=== PATIENT | male | born 1990 | race Two or more races ===

== ENCOUNTER 2018-09-16 15:40 | Emergency (ER) | payer MEDICAID, OTHER ==
[~2018-09-16] VITALS: Ht 175.3 cm; Wt 80.5 kg
--- NOTE | 2018-09-16 16:24 | NUR ---
PT TEARFUL ON ARRIVAL, WORRIED ABOUT HIS GRANDMOTHER, AUDITORY HALLUCINATIONS THAT SOMETHING BAD IS GOING TO HAPPEN TO HER.
--- NOTE | 2018-09-16 16:36 | NUR ---
PT GETTING LABS DRAWN, PT HAVING A HARD TIME FOCUSING ON TRYING TO REMEMBER WHAT MEDICATIONS HE TAKES. STATES I AM IN DEEP THOUGHT ABOUT SOMETHING AND IS FRUSTRATED THAT HE CANT REMEMBER WHAT HE TAKES.
--- NOTE | 2018-09-16 16:39 | NUR ---
PT STATES HE TAKES TRAZADONE, KLONIDINE AND GABAPENTIN. DOES NOT KNOW THE DOSES. WILL TRY TO FIND OUT MORE WHEN PT IS RELAXED.
[2018-09-16 16:57] LABS: BASOPHILS % (AUTO) 0.3 % (0-1); EOSINOPHILS # (AUTO) 0.1 X10'3 (0-0.9); EOSINOPHILS % (AUTO) 0.4 % (0-6); HEMATOCRIT 38.2 % (42.0-52.0); HEMOGLOBIN 12.9 g/dl (14.0-17.9); LYMPHOCYTES # (AUTO) 1.6 X10'3 (1.1-4.8); LYMPHOCYTES % (AUTO) 13.3 % (21-51); MEAN CORPUSCULAR HEMOGLOBIN 29.4 PG (27.0-31.0); MEAN CORPUSCULAR HGB CONC 33.7 g/dL (33.0-36.5); MEAN CORPUSCULAR VOLUME 87.2 FL (78-98); MONOCYTES # (AUTO) 1.2 X10'3 (0-0.9); MONOCYTES % (AUTO) 9.8 % (2-12); NEUTROPHILS # (AUTO) 9.1 X10'3 (1.8-7.7); NEUTROPHILS % (AUTO) 76.2 % (42-75); PLATELET COUNT 383 X10'3 (140-440); RED BLOOD COUNT 4.38 X10'6 (4.70-6.10)
--- NOTE | 2018-09-16 17:06 | NUR ---
PT BEING EVALUATED BY PROVIDER LEOPOLDO.
[2018-09-16 17:10] LABS: ALANINE AMINOTRANSFERASE 34 U/L (12-78); ALBUMIN 3.6 G/DL (3.4-5.0); ALBUMIN/GLOBULIN RATIO 1.1 (1.1-1.5); ALKALINE PHOSPHATASE 68 IU/L (46-116); ANION GAP 8 (8-16); ASPARTATE AMINO TRANSFERASE 33 U/L (10-37); BILIRUBIN,TOTAL 0.2 MG/DL (0.1-1.0); BLOOD UREA NITROGEN 27 MG/DL (7-18); BUN/CREATININE RATIO 29.7 (5.4-32.0); CHLORIDE 103 MMOL/L (99-107); CREATININE 0.91 MG/DL (0.60-1.10); ETHANOL < 0.010 GM/DL (0.0-0.010); GLUCOSE 97 MG/DL (70-104); POTASSIUM 3.8 MMOL/L (3.5-5.1); SODIUM 139 MMOL/L (135-145); TOTAL CARBON DIOXIDE 27.9 MMOL/L (24-32); TOTAL PROTEIN 6.8 G/DL (6.4-8.2); eGFR > 90 ML/MIN
[2018-09-16 17:13] LABS: URINE AMPHETAMINE SCREEN POSITIVE (Neg); URINE BARBITUATE SCREEN NEGATIVE (Neg); URINE BENZODIAZEPINES SCREEN NEGATIVE (Neg); URINE CANNABINOID SCREEN POSITIVE (Neg); URINE COCAINE SCREEN NEGATIVE (Neg); URINE METHADONE SCREEN NEGATIVE (Neg); URINE OPIATE SCREEN NEGATIVE (Neg); URINE PHENCYCLIDINE SCREEN NEGATIVE (Neg)
--- NOTE | 2018-09-16 17:21 | NUR ---
PT'S GRANDMOTHER CALLS AND UPDATES HIS MEDICATIONS AND HX. TRANSFER CALL INTO PT SO SHE CAN TALK TO HIM. PER HIS GRANDMOTHER, JF, HIS BEHAVIOR HAS GOTTEN WORSE OVER THE LAST 3 OR 4 DAYS. PT BARKS, YELLS, SCREAMS AND CUSSES. PT TOLD HER HE HAS TAKEN EVERYTHING INCLUDING MUSHROOMS AND LSD BESIDES THE METH. PT HASNT SLEPT HARDLY AT ALL OVER THE LAST 2 WEEKS BUT HAS BEEN EATING. PT SE[facility] DR [facility]. DUE TO HIS PRIOR YEARS PLAYING [employer]LE[employer] FOOTBALL HIS DOCTOR THINKS HE MAY HAVE CTE.
[2018-09-16] MEDS ORDERED: GABA-532 PO (17:29)
[2018-09-16] MEDS ORDERED: TRAZ-218 PO (17:29)
[2018-09-16] MEDS ORDERED: CLON0.1T PO (17:29)
[2018-09-16 18:05] LABS: CLARITY,URINE CLEAR (Clear); COLOR,URINE YELLOW (Yellow); GLUCOSE, URINE NEGATIVE (Neg); KETONES,URINE NEGATIVE (Neg); LEUKOCYTE ESTERASE ,URINE NEGATIVE (Neg); NITRITES, URINE NEGATIVE (Neg); OCCULT BLOOD,URINE NEGATIVE (Neg); PROTEIN,URINE NEGATIVE (Neg); UROBILINOGEN,URINE 0.2 E.U/dL (0.2-1.0)
--- NOTE | 2018-09-16 18:16 | NUR ---
[employer] SERVED.
[2018-09-16 18:18] LABS: UA COLLECTION TYPE NON-SPECIFIED
--- NOTE | 2018-09-16 18:45 | NUR ---
DR. GOVEA CALLED AND REPORT GIVEN FOR TELEPSYCH CONSULT
--- NOTE | 2018-09-16 18:50 | NUR ---
TELE PSYCH IN PROGRESS
[2018-09-16] MEDS: gabapentin 300mg capsule PO SCH (20:37)
[2018-09-16] MEDS: traZODone 50mg tablet PO SCH (20:37)
[2018-09-16] MEDS: cloNIDine 0.1 mg tablet PO SCH (20:37)
[2018-09-17] MEDS ORDERED: diphenhydrAMINE 25mg capsule PO ONE (06:55)
[2018-09-17] MEDS ORDERED: LORazepam 1 MG tablet PO ONE (06:55)
--- NOTE | 2018-09-17 07:00 | NUR ---
Pt has been sitting on bed and is very fidigity. Pt stated he is very anxious and with racing thoughts. Spoke with Dr. Rashid and reported findings. Received verbal orders for Zyprexa 10mg PO daily, Ativan 2mg PO x 1 now and Benadryl 50mg PO x 1 now
[2018-09-17] MEDS: gabapentin 300mg capsule PO SCH ×2 (07:28→21:22)
[2018-09-17] MEDS: OLANZapine 5mg rapidly disint. tablet PO SCH (07:28)
[2018-09-17] MEDS: cloNIDine 0.1 mg tablet PO SCH ×3 (07:28→21:00)
--- NOTE | 2018-09-17 12:19 | NUR ---
PT AWAKE AND EATING WHILE SITTING IN BED.
--- NOTE | 2018-09-17 19:00 | NUR ---
PATIENT LYING IN BED ON LEFT SIDE COVERS ON EYES CLOSED RR EVEN UN LABORED NO OBSERVABLE S/S OF ACUTE STRESS AT THIS TIME
--- NOTE | 2018-09-17 19:05 | NUR ---
[facility] AT BEDSIDE EVALUATING PATIENT
--- NOTE | 2018-09-17 19:27 | NUR ---
[facility] VERBALIZED THEY WILL BE CONTINUING THE 5150 HOLD
--- NOTE | 2018-09-17 21:00 | NUR ---
SPOKE WITH GRANDMOTHER UPDATED STATUS
[2018-09-17] MEDS: traZODone 50mg tablet PO SCH (21:22)
--- NOTE | 2018-09-17 23:03 | NUR ---
[facility] CALLED VERBALIZED PATIENT HAS A BED AT [facility] IN THE A.M. OF 09/18/18, CALLED GAVE REPORT TO ROLO MERRILL
--- NOTE | 2018-09-17 23:16 | NUR ---
SPOKE WITH ROLO RN FROM [facility] PATIENT HAS BEEN ACCEPTED, [facility] VERBALIZED 2 MALES ARE TO BE DC'D FROM FACILITY IN THE A.M. OF 09/18/18 , ROLO VERBALIZED WHEN 1/2 OF THESE PATIENTS GETS DC'D [facility] WILL BE PICKED UP FOR PLACEMENT AT [facility]
--- NOTE | 2018-09-17 23:30 | NUR ---
PATIENT UP TO BATHROOM AND BACK TO BED NO OBSERVABLE S/S OF ACUTE STRESS AT THIS TIME
--- NOTE | 2018-09-18 00:43 | NUR ---
patient in bed lying supine covers on eyes closed rr even un labored no observable s/s of acute stress at this time
--- NOTE | 2018-09-18 02:40 | NUR ---
patient in bed covers on still lying supine eyes closed rr even un labored no observable s/s of acute stress at this time
--- NOTE | 2018-09-18 04:50 | NUR ---
patient in bed covers on eyes closed rr even un labored no observable s/s of acute stress at this time
--- NOTE | 2018-09-18 06:38 | NUR ---
Patient sleeping on right side. No distress observed. Continue to monitor.
--- NOTE | 2018-09-18 07:09 | NUR ---
Patient up to nurses station to speak to RN twice wanting to leave. Patient states he can make it on his own now and [facility] RN advised patient that he is awaiting placement and needs the help. Continue to monitor.
[2018-09-18] MEDS: cloNIDine 0.1 mg tablet PO SCH ×2 (08:00→12:37)
[2018-09-18] MEDS: gabapentin 300mg capsule PO SCH (08:07)
[2018-09-18] MEDS: OLANZapine 5mg rapidly disint. tablet PO SCH (08:07)
[2018-09-18] MEDS ORDERED: NICOTINE POLACRILEX 4 MG LOZENGE BC PRN (08:25)
--- NOTE | 2018-09-18 09:50 | NUR ---
Patient sleeping on right side. No distress observed. Continue to monitor.
--- NOTE | 2018-09-18 11:50 | NUR ---
Grandmother called and gave information on patient. Patient's father placed a restraining order on patient about 2 weeks ago. This sent patient into a spiral with increased drug use. Patient living with grandmother finally asked for help and called workplace rehabilitation officer to bring him in. Patient has a long hx of watching his father inject himself with IV drugs (at a very young age). Mother who was a nurse looked the other way. Per grandmother, patient needs to go to rehab before she will allow him back at her house. Patient is aware.
[2018-09-18 12:36] VITALS: BP 102/56
== END 2018-09-18 13:00 | disposition home or self-care (01) ==
LOC: ER 15:40
DX: S90.821A Blister (nonthermal), right foot, initial encounter (principal); F15.10 Other stimulant abuse, uncomplicated; F17.200 Nicotine dependence, unspecified, uncomplicated; F11.90 Opioid use, unspecified, uncomplicated; Z59.0 Homelessness; Z88.8 Allergy status to other drugs, medicaments and biological substances; Y09 Assault by unspecified means; Y93.89 Activity, other specified; Y92.89 Other specified places as the place of occurrence of the external cause; Y99.8 Other external cause status
CPT/HCPCS: 36415; 80053; 80305; 80320; 81003; 84443; 85025; 99285; Q0163

== ENCOUNTER 2019-09-13 21:36 | Emergency (ER) | payer MEDICAID ==
[~2019-09-13] VITALS: Ht 175.3 cm; Wt 93.2 kg
[~2019-09-13 21:36] MED LIST: CLON0.1T PO; GABA-532 PO; TRAZ-251 PO
[2019-09-13 21:37] VITALS: BP 133/88
[2019-09-13 22:43] LABS: CLARITY,URINE CLEAR (Clear); COLOR,URINE YELLOW (Yellow); GLUCOSE, URINE NEGATIVE (Neg); KETONES,URINE TRACE mg/dl (Neg); LEUKOCYTE ESTERASE ,URINE NEGATIVE (Neg); NITRITES, URINE NEGATIVE (Neg); OCCULT BLOOD,URINE NEGATIVE (Neg); PROTEIN,URINE NEGATIVE (Neg)
[2019-09-13 22:44] LABS: UA COLLECTION TYPE VOIDED
[2019-09-13 22:48] LABS: BASOPHILS % (AUTO) 0.4 % (0-1); EOSINOPHILS # (AUTO) 0.1 X10'3 (0-0.9); EOSINOPHILS % (AUTO) 1.4 % (0-6); HEMATOCRIT 41.4 % (42.0-52.0); HEMOGLOBIN 14.1 g/dl (14.0-17.9); LYMPHOCYTES # (AUTO) 2.3 X10'3 (1.1-4.8); LYMPHOCYTES % (AUTO) 26.8 % (21-51); MEAN CORPUSCULAR HEMOGLOBIN 29.7 PG (27.0-31.0); MEAN CORPUSCULAR VOLUME 87.1 FL (78-98); MEAN PLATELET VOLUME 7.5 FL (7.4-10.4); MONOCYTES # (AUTO) 0.8 X10'3 (0-0.9); MONOCYTES % (AUTO) 9.1 % (2-12); NEUTROPHILS # (AUTO) 5.3 X10'3 (1.8-7.7); NEUTROPHILS % (AUTO) 62.3 % (42-75); PLATELET COUNT 286 X10'3 (140-440); RED BLOOD COUNT 4.75 X10'6 (4.70-6.10); RED CELL DISTRIBUTION WIDTH 12.9 % (11.5-14.5); WHITE BLOOD COUNT 8.5 X10'3 (4.5-11.0)
[2019-09-13 22:51] LABS: ALANINE AMINOTRANSFERASE 25 U/L (12-78); ALBUMIN 3.7 G/DL (3.4-5.0); ALBUMIN/GLOBULIN RATIO 1.1 (1.1-1.5); ALKALINE PHOSPHATASE 69 IU/L (46-116); ANION GAP 8 (8-16); ASPARTATE AMINO TRANSFERASE 60 U/L (10-37); BILIRUBIN,TOTAL 0.4 MG/DL (0.1-1.0); BLOOD UREA NITROGEN 8 MG/DL (7-18); CALCIUM 8.7 MG/DL (8.5-10.1); CHLORIDE 105 MMOL/L (99-107); CREATININE 1.15 MG/DL (0.60-1.10); GLUCOSE 110 MG/DL (70-104); POTASSIUM 3.5 MMOL/L (3.5-5.1); SODIUM 142 MMOL/L (135-145); TOTAL CARBON DIOXIDE 29.2 MMOL/L (24-32); TOTAL PROTEIN 7.2 G/DL (6.4-8.2); eGFR 76 ML/MIN
[2019-09-13 23:03] LABS: ETHANOL < 0.010 GM/DL (0.0-0.010)
[2019-09-13 23:04] LABS: URINE AMPHETAMINE SCREEN NEGATIVE (Neg); URINE BARBITUATE SCREEN NEGATIVE (Neg); URINE BENZODIAZEPINES SCREEN NEGATIVE (Neg); URINE CANNABINOID SCREEN NEGATIVE (Neg); URINE COCAINE SCREEN NEGATIVE (Neg); URINE METHADONE SCREEN NEGATIVE (Neg); URINE OPIATE SCREEN NEGATIVE (Neg); URINE PHENCYCLIDINE SCREEN NEGATIVE (Neg)
--- NOTE | 2019-09-13 23:05 | NUR ---
Pt. in bed, resting with eyes closed. Repositions self.
--- NOTE | 2019-09-14 00:07 | NUR ---
Pt. sleeping on R side. No s/s of distress.
--- NOTE | 2019-09-14 01:03 | NUR ---
Pt. continues to sleep/rest on his L side. No s/s of distress observed at this time.
--- NOTE | 2019-09-14 02:11 | NUR ---
Pt. requested a blanket. No other needs at this time. Pt. continued to rest.
--- NOTE | 2019-09-14 03:21 | NUR ---
Pt. on L side, sleeping. No needs at this time.
[2019-09-14] MEDS ORDERED: BUPR150T6 PO (03:31)
[2019-09-14] MEDS ORDERED: ARIP2TAB20 PO (03:31)
[2019-09-14] MEDS ORDERED: TRAZ-256 PO (03:31)
[2019-09-14] MEDS ORDERED: HYDR-3927 PO (03:31)
[2019-09-14] MEDS ORDERED: traZODone 50mg tablet PO PRN (04:05)
--- NOTE | 2019-09-14 04:07 | NUR ---
Pt. continues to sleep. He repositions himself. No s/s of distress observed.
--- NOTE | 2019-09-14 05:01 | NUR ---
Pt. continues to sleep. He repositions himself. No needs at this time.
--- NOTE | 2019-09-14 06:59 | NUR ---
pt is in bed, resting, no signs of distress noted. pt able to make needs known
--- NOTE | 2019-09-14 07:39 | NUR ---
pt is resting in bed with eyes closed. no signs of distress noted
[2019-09-14] MEDS ORDERED: hydrOXYzine 25 MG tablet PO SCH (08:00)
[2019-09-14] MEDS ORDERED: buPROPion SR 150mg tablet PO SCH (08:00)
--- NOTE | 2019-09-14 08:51 | NUR ---
pts grandma at bedside. pt is being discharged and she will be his transportation
== END 2019-09-14 09:08 | disposition home or self-care (01) ==
LOC: ER 21:37
DX: R44.0 Auditory hallucinations (principal); F60.0 Paranoid personality disorder; R79.1 Abnormal coagulation profile; F32.9 Major depressive disorder, single episode, unspecified; Z59.0 Homelessness; Z88.8 Allergy status to other drugs, medicaments and biological substances; Z79.899 Other long term (current) drug therapy
CPT/HCPCS: 36415; 80053; 80305; 80320; 81003; 84443; 85025; 99283

== ENCOUNTER 2019-09-19 10:21 | Emergency (ER) | payer MEDICAID, OTHER ==
[~2019-09-19] VITALS: Ht 177.8 cm; Wt 86.4 kg
[~2019-09-19 10:21] MED LIST changes: +ARIP2TAB20 PO; +BUPR150T6 PO; -CLON0.1T PO; -GABA-532 PO; +HYDR-3927 PO; -TRAZ-251 PO; +TRAZ-256 PO
[2019-09-19 10:22] VITALS: BP 160/88
== END 2019-09-19 11:01 | disposition home or self-care (01) ==
LOC: ER 10:21
DX: J06.9 Acute upper respiratory infection, unspecified (principal); F32.9 Major depressive disorder, single episode, unspecified; F17.200 Nicotine dependence, unspecified, uncomplicated; Z59.0 Homelessness; Z88.8 Allergy status to other drugs, medicaments and biological substances; Z79.899 Other long term (current) drug therapy
CPT/HCPCS: 99281

== ENCOUNTER 2020-12-22 10:53 | Emergency (ER) | payer MEDICAID ==
[~2020-12-22] VITALS: Ht 177.8 cm; Wt 79.0 kg
[~2020-12-22 10:53] MED LIST changes: +BUPR-317 PO; -BUPR150T6 PO
[2020-12-22 11:08] VITALS: BP 98/59
== END 2020-12-22 11:29 | disposition home or self-care (01) ==
LOC: ER 10:53
DX: Z02.89 Encounter for other administrative examinations (principal); F15.90 Other stimulant use, unspecified, uncomplicated; F32.9 Major depressive disorder, single episode, unspecified; Z59.0 Homelessness; Z88.8 Allergy status to other drugs, medicaments and biological substances; Z79.899 Other long term (current) drug therapy
CPT/HCPCS: 99281

== ENCOUNTER 2021-06-30 13:40 | Emergency (ER) | payer MEDICAID ==
[~2021-06-30] VITALS: Ht 177.8 cm; Wt 88.6 kg
[2021-06-30 13:51] VITALS: BP 126/75
[2021-06-30] MEDS ORDERED: LIDOcaine 1% W/epiNEPHrine 1:200,000 10ml vial IJ ONE (14:45)
[2021-06-30] MEDS ORDERED: bacitracin 15gm ointment TP ONE (14:45)
[2021-06-30] MEDS ORDERED: SULF1TAB49 PO (15:09)
[2021-06-30] MEDS ORDERED: LIDOcaine 1% W/epiNEPHrine 1:100,000 20ml vial IJ ONE ×2 (15:25→15:30)
== END 2021-06-30 16:10 | disposition home or self-care (01) ==
LOC: ER 13:41
DX: L02.413 Cutaneous abscess of right upper limb (principal); L03.113 Cellulitis of right upper limb; F15.10 Other stimulant abuse, uncomplicated; F32.9 Major depressive disorder, single episode, unspecified; Z59.00 Homelessness unspecified; Z88.8 Allergy status to other drugs, medicaments and biological substances; Z79.899 Other long term (current) drug therapy; Z79.2 Long term (current) use of antibiotics
CPT/HCPCS: 10060; 99283

== ENCOUNTER 2021-10-17 18:56 | Emergency (ER) | payer MEDICAID ==
[~2021-10-17] VITALS: Ht 177.8 cm; Wt 81.8 kg
[2021-10-17 19:31] VITALS: BP 119/68
[2021-10-17] MEDS ORDERED: buprenorphine/naloxone 2-0.5mg sublingual tablet SL STA (20:28)
== END 2021-10-17 21:02 | disposition home or self-care (01) ==
LOC: ER 18:57
DX: F11.90 Opioid use, unspecified, uncomplicated (principal); F32.A Depression, unspecified; F15.90 Other stimulant use, unspecified, uncomplicated; Z59.00 Homelessness unspecified; Z88.8 Allergy status to other drugs, medicaments and biological substances; Z79.899 Other long term (current) drug therapy
CPT/HCPCS: 99281

== ENCOUNTER 2021-12-29 19:04 | Emergency (ER) | payer MEDICAID ==
[~2021-12-29] VITALS: Ht 177.8 cm; Wt 76.4 kg
[2021-12-29 19:11] VITALS: BP 166/102
[2021-12-29] MEDS ORDERED: naproxen 500mg tablet PO ONE (19:15)
[2021-12-29] MEDS ORDERED: acetaminophen 325mg tablet PO ONE (19:15)
[2021-12-29] MEDS ORDERED: amox tr/potassium clavulanate 875/125mg TAB PO ONE (19:15)
[2021-12-29] MEDS ORDERED: AMOX-117 PO (19:17)
== END 2021-12-29 19:55 ==
LOC: ER 19:05
DX: S61.402A Unspecified open wound of left hand, initial encounter (principal); Z02.89 Encounter for other administrative examinations; F32.9 Major depressive disorder, single episode, unspecified; F12.10 Cannabis abuse, uncomplicated; F15.10 Other stimulant abuse, uncomplicated; Z88.8 Allergy status to other drugs, medicaments and biological substances; W54.0XXA Bitten by dog, initial encounter; Y93.89 Activity, other specified; Y92.89 Other specified places as the place of occurrence of the external cause; Y99.8 Other external cause status
CPT/HCPCS: 99284

== ENCOUNTER 2022-02-20 03:05 | Emergency (ER) | payer MEDICAID ==
[~2022-02-20] VITALS: Ht 177.8 cm; Wt 74.1 kg
[2022-02-20 03:13] VITALS: BP 112/64
== END 2022-02-20 04:54 | disposition left against medical advice (07) ==
LOC: ER 03:05
DX: L02.91 Cutaneous abscess, unspecified (principal); Z53.21 Procedure and treatment not carried out due to patient leaving prior to being seen by health care provider

== ENCOUNTER 2023-11-17 15:15 | Emergency (ER) | payer MEDICAID ==
[~2023-11-17] VITALS: Ht 177.8 cm; Wt 84.2 kg
[2023-11-17 15:30] VITALS: BP 143/95; PULSE 61; RESP 14; TEMP 98; O2SAT 98
[2023-11-17 16:48] LABS: BILIRUBIN,URINE NEGATIVE (Neg); COLOR,URINE YELLOW (Yellow); GLUCOSE, URINE NEGATIVE (Neg); KETONES,URINE NEGATIVE (Neg); LEUKOCYTE ESTERASE ,URINE NEGATIVE (Neg); NITRITES, URINE NEGATIVE (Neg); OCCULT BLOOD,URINE NEGATIVE (Neg); PROTEIN,URINE NEGATIVE (Neg); UROBILINOGEN,URINE 0.2 E.U/dL (0.2-1.0)
[2023-11-17 16:51] LABS: BASOPHILS # (AUTO) 0.1 X10'3 (0-0.2); BASOPHILS % (AUTO) 0.7 % (0-1); EOSINOPHILS # (AUTO) 0.3 X10'3 (0-0.9); EOSINOPHILS % (AUTO) 3.4 % (0-6); HEMATOCRIT 45.6 % (42.0-52.0); HEMOGLOBIN 15.1 g/dl (14.0-17.9); LYMPHOCYTES % (AUTO) 38.9 % (21-51); MEAN CORPUSCULAR HEMOGLOBIN 28.9 PG (27.0-31.0); MEAN CORPUSCULAR HGB CONC 33.1 g/dL (33.0-36.5); MEAN CORPUSCULAR VOLUME 87.4 FL (78-98); MEAN PLATELET VOLUME 6.7 FL (7.4-10.4); MONOCYTES # (AUTO) 0.6 X10'3 (0-0.9); MONOCYTES % (AUTO) 5.4 % (2-12); NEUTROPHILS # (AUTO) 5.4 X10'3 (1.8-7.7); NEUTROPHILS % (AUTO) 51.6 % (42-75); PLATELET COUNT 317 X10'3 (140-440); RED BLOOD COUNT 5.21 X10'6 (4.70-6.10); RED CELL DISTRIBUTION WIDTH 13.9 % (11.5-14.5); WHITE BLOOD COUNT 10.4 X10'3 (4.5-11.0)
[2023-11-17 16:55] LABS: ALANINE AMINOTRANSFERASE 28 U/L (12-78); ALBUMIN 3.6 G/DL (3.4-5.0); ALBUMIN/GLOBULIN RATIO 0.9 (1.1-1.5); ALKALINE PHOSPHATASE 92 IU/L (46-116); ANION GAP 9 (8-16); ASPARTATE AMINO TRANSFERASE 23 U/L (10-37); BILIRUBIN,TOTAL 0.2 MG/DL (0.1-1.0); BLOOD UREA NITROGEN 14 MG/DL (7-18); BUN/CREATININE RATIO 15.9 (10.0-20.0); CHLORIDE 100 MMOL/L (99-107); CREATINE KINASE 347 U/L (39-308); CREATININE 0.88 MG/DL (0.60-1.10); ETHANOL < 10 MG/DL (<10); GLUCOSE 96 MG/DL (70-104); POTASSIUM 3.8 MMOL/L (3.5-5.1); SALICYLATE 2.6 MG/DL (4.0-20.0); SODIUM 139 MMOL/L (135-145); TOTAL CARBON DIOXIDE 30.2 MMOL/L (24-32); TOTAL PROTEIN 7.8 G/DL (6.4-8.2); eCRCL 126 ML/MIN; eGFR > 90 ML/MIN
[2023-11-17 16:57] LABS: URINE AMPHETAMINE SCREEN POSITIVE (Neg); URINE BARBITUATE SCREEN NEGATIVE (Neg); URINE BENZODIAZEPINES SCREEN NEGATIVE (Neg); URINE CANNABINOID SCREEN POSITIVE (Neg); URINE COCAINE SCREEN NEGATIVE (Neg); URINE METHADONE SCREEN NEGATIVE (Neg); URINE OPIATE SCREEN NEGATIVE (Neg); URINE PHENCYCLIDINE SCREEN NEGATIVE (Neg)
[2023-11-17 16:58] LABS: ACETAMINOPHEN < 2.0 UG/ML (10-30)
[2023-11-17 16:59] LABS: CLARITY,URINE SLIGHTLY CLOUDY (Clear); UA COLLECTION TYPE CLN CATCH MIDSTREAM
[2023-11-17 17:01] LABS: MUCUS STRANDS MANY /LPF (Neg)
[2023-11-17 17:02] LABS: WBC,URINE 0-4 /HPF (0-4)
[2023-11-17 17:06] LABS: CAL OXALATE CRYSTALS 2+ /HPF (NEGATIVE); RBC,URINE NONE SEEN /HPF (0-2)
[2023-11-17 17:07] LABS: BACTERIA,URINE NONE SEEN /HPF (Neg); SQUAMOUS EPITHELIAL CELL,UR NONE SEEN /LPF (FEW)
== END 2023-11-17 18:24 | disposition home or self-care (01) ==
LOC: ER 15:16
DX: F11.90 Opioid use, unspecified, uncomplicated (principal); F12.90 Cannabis use, unspecified, uncomplicated; F15.90 Other stimulant use, unspecified, uncomplicated; Z79.899 Other long term (current) drug therapy
CPT/HCPCS: 36415; 80053; 80305; 80320; 80329; 81001; 82550; 85025; 99283